=== PATIENT | male | born 1995 | race Caucasian/White ===

== ENCOUNTER 2016-10-21 20:56 | Emergency (ER) | payer BC ==
[~2016-10-21] VITALS: Ht 172.7 cm; Wt 83.7 kg
[2016-10-21 21:06] VITALS: TEMP 37; Ht 172.7 cm; Wt 83.7 kg
[2016-10-21] MEDS ORDERED: PROPARACAINE HCL 0.5% OP SOLN 15 ML BTL OP STA (21:38)
--- NOTE | 2016-10-21 22:29 | EMERGENCY ROOM VISIT NOTE ---
ED Visit Note First contact with patient: 21:10 CHIEF COMPLAINT: Eye pain HISTORY OF PRESENT ILLNESS: This 21-year-old male patient presents to the emergency department ambulatory complaining of pain in the right eye which began earlier today. The patient states that he was working at home shoveling dirt when he felt something go into the eyes. There has been a constant moderate pain and irritation, redness and tearing in the eye. There is a mild blurring of vision at times and light bothers the eye. The vision has not been decreased over all. The patient does not wear contacts. The patient rates the pain as stinging and 10/10. The patient has not had previous injuries to this eye. Tetanus shot is up to date. REVIEW OF SYSTEMS: A 6 system review of systems was completed with positives and pertinent negatives listed in the HPI. ALLERGIES: No known drug allergies MEDICATIONS: No chronic medications PMH: No significant past medical history. SOCIAL HISTORY: The patient lives locally with family. PHYSICAL EXAM: Vital Signs: Reviewed Nurse's notes, vital signs stable. Visual acuity 20/40 right eye, 20/15 left eye. GENERAL: This is a 21-year-old male, in no acute distress, but who is uncomfortable from the eye problem. Well- developed well-nourished. EYES: The pupils are equal round and reactive to light and accommodation. EOMs are full and without tenderness. There is discharge of clear tears from the right eye which is injected. There is no foreign body visible under the eyelid even after lid eversion. Funduscopic exam reveals no hemorrhages, papilledema, or other abnormalities. No foreign body was seen embedded in the cornea under slit lamp exam. The cornea was clear and no hyphema was seen. Fluorescein uptake was observed with ultraviolet light significant for a corneal abrasion at approximately 6:00. EMERGENCY DEPARTMENT COURSE: I examined the patient. Alcaine 2 drops were placed in the patient's right eye. A slit lamp exam was performed as above. Ciloxan two drops was placed in the patient's right eye. The patient was discharged home in good condition. DIAGNOSIS: Corneal abrasion of the right eye Current/Historical Medications Unable to Obtain Active Prescriptions or Reported Meds Allergies Coded Allergies: No Known Allergies (Unverified , 10/21/16) Vital Signs Date Time Temp Pulse Resp B/P Pulse Ox O2 Delivery O2 Flow Rate FiO2 10/21/16 22:30 71 18 130/72 95 Room Air 10/21/16 21:06 37.0 76 16 119/84 96 Room Air Medications Administered Medications (Trade) Dose Ordered Sig/Pancho Route Start Time Stop Time Status Last Admin Dose Admin Ciprofloxacin HCl (Ciprofloxacin 0.3% Op Soln) 2 drops Q4H ONCE OP 10/21/16 22:30 10/21/16 22:31 DC 10/21/16 22:29 2 DROPS Departure Information Dispostion Home / Self-Care Condition GOOD Prescriptions Unable to Obtain Active Prescriptions or Reported Meds Referrals Rayo Crowley M.D. (PCP) Patient Instructions My [facility] Additional Instructions You have been treated in the Emergency Department today for your Corneal Abrasion. You have been prescribed Ciloxan eye drops. This is an antibiotic which will help to prevent an infection from developing in your affected eye. You should use 2 drops in the affected eye every 2 hours while awake for the first 2 days, then every 4 hours for the remaining 5 days. This is a total of a 7-day course for these antibiotic eye drops. For pain control, you can use the following [id number] medicines (if >12 yo): - Regular strength (325mg/tab) Tylenol (acetaminophen) 2 tabs every 4-6 hours as needed. Do not exceed 12 tablets in a 24 hour period. Avoid taking more than 4 grams (4000 mg) of Tylenol per day. This includes any other sources of acetaminophen you may take on a regular basis. - Regular strength (200 mg/tab) Advil (ibuprofen) 1-2 tabs every 4-6 hours as needed. Do not exceed a dose of 3200 mg per day. You should relax in a quiet, dark place for the rest of the day. You should wear sunglasses while outside for the next few days until your eyes are not as sensitive to the light. You should schedule a follow-up appointment in 2-3 days with your Primary Care Provider or established Eye Doctor ([employer]) for further evaluation and treatment of your Corneal Abrasion. Return to the Emergency Department if your current symptoms worsen despite treatment course outlined above, or if you develop any of the following symptoms : intractable pain, visual disturbances, loss of vision, increased redness, swelling, drainage, or if you develop a fever.
[2016-10-21 22:30] VITALS: BP 130/72; PULSE 71; O2SAT 95
[2016-10-21] MEDS ORDERED: CIPROFLOXACIN HCL 0.3% OP SOLN 2.5 ML BTL OP ONE (22:30)
== END 2016-10-21 22:33 | disposition home or self-care (01) ==
LOC: C.EDB 20:56 → C.EDD 22:33
DX: S05.01XA Injury of conjunctiva and corneal abrasion without foreign body, right eye, initial encounter (principal); W22.8XXA Striking against or struck by other objects, initial encounter; Y93.H1 Activity, digging, shoveling and raking; Y92.009 Unspecified place in unspecified non-institutional (private) residence as the place of occurrence of the external cause

== ENCOUNTER 2017-09-15 05:38 | Emergency (ER) | payer BC, OTHER ==
[~2017-09-15] VITALS: Ht 170.2 cm; Wt 70.9 kg
[2017-09-15 05:42] VITALS: BP 109/61; PULSE 102; TEMP 38.2; O2SAT 95; Ht 170.2 cm; Wt 70.9 kg
[2017-09-15] MEDS ORDERED: KETOROLAC TROMETHAMINE 60 MG/2 ML VIAL IM STA (05:56)
[2017-09-15] MEDS ORDERED: AMOX875T PO (05:58)
[2017-09-15] MEDS ORDERED: CEFTRIAXONE SOD 350MG/ML 1 GM VIAL IM ONE (06:00)
[2017-09-15] MEDS ORDERED: DEXAMETHASONE **PF** INJ 10 MG/ML VIAL IM ONE (06:00)
--- NOTE | 2017-09-15 07:06 | EMERGENCY ROOM VISIT NOTE ---
History First contact with patient: 05:45 Chief Complaint: SORETHROAT Stated Complaint: SORE THROAT,HEADACHE,SWOLLEN TONSILS History of Present Illness The patient is a 22 year old male who presents to the Emergency Room with complaints of sore throat and fever symptoms worsening over the past one to 2 days. The patient does not have known exposure to disease, but is with past history of peritonsillar abscess that required admission and OR drainage. The patient is concerned for the same today as he is having pain with swallowing. He does not have cough, chest pain, chest tightness, or shortness of breath. He is able to handle his own secretions. No facial or ear pain. He rates his discomfort a 7/10 and last took Advil about 12 hours ago. Review of Systems More than 10 systems were reviewed and otherwise negative with the exception of history of present illness. Past Medical/Surgical History History of peritonsillar abscess Family History No pertinent family history Social History Smoking Status: Never Smoker Drug Use: none Marital Status: single Housing Status: lives with family Occupation Status: student Current/Historical Medications Scheduled Amoxicillin & Pot Clavulanate (Augmentin 875-125 mg), 1 TAB PO BID Physical Exam Vital Signs Date Time Temp Pulse Resp B/P (MAP) Pulse Ox O2 Delivery O2 Flow Rate FiO2 09/15/17 05:42 95 Room Air 09/15/17 05:42 38.2 102 20 109/61 95 Room Air Physical Exam VITALS: Vitals are noted on the nurse's note and reviewed by myself. Vital signs stable. GENERAL: Well-developed, well-nourished, white male, who is in no acute distress and resting comfortably. Patient is cooperative with the examination. EARS: External ear normal. External auditory canals clear, tympanic membranes pearly nice without erythema or effusion bilaterally. EYES: Pupils equal round and reactive to light and accommodation. Conjunctivae without injection, sclerae without icterus. Extraocular movements intact. NOSE: Patent, turbinates without inflammation or discharge. MOUTH: Mucous membranes moist. Tonsils are 3+ enlarged and exudative. Uvula is midline. No soft palate swelling. NECK: Supple without nuchal rigidity. Shotty anterior chain lymphadenopathy noted HEART: Regular rate and rhythm without murmurs gallops or rubs. LUNGS: Clear to auscultation bilaterally without wheezes, rales or rhonchi. No retractions or accessory muscle use. Medical Decision & Procedures Medications Administered Medications (Trade) Dose Ordered Sig/Pancho Route Start Time Stop Time Status Last Admin Dose Admin Ceftriaxone Sodium (Rocephin Im) 1,000 mg NOW ONCE IM 09/15/17 06:00 09/15/17 06:01 DC 09/15/17 06:11 1,000 MG Dexamethasone Sodium Phosphate (Dexamethasone Inj Pf) 10 mg NOW ONCE IM 09/15/17 06:00 09/15/17 06:01 DC 09/15/17 06:11 10 MG Ketorolac Tromethamine (Toradol Inj) 60 mg NOW STAT IM 09/15/17 05:56 09/15/17 05:58 DC 09/15/17 06:11 60 MG ED Course Physical exam and history were performed. Nursing notes, EMR, and Medication List were personally reviewed. Patient appears to have throat pain for the past one to 2 days. On exam he has markedly enlarged tonsils with exudates. Taking into consideration the patient' s past history of peritonsillar abscess I did elect to give him a dose of IM Rocephin, IM Decadron, and IM Toradol. The patient will be continued on Augmentin. He will need close follow-up with his primary care physician in the next 1-2 days for recheck. He was certainly invited back to the ER with any new , worsening, or concerning symptoms. He was given further instructions as below. The chart was completed utilizing [employer] Speech Voice Recognition Software. Grammatical errors, random word insertions, pronoun errors, and incomplete sentences are an occasional consequence of this system due to software limitations, ambient noise, and hardware issues. Any formal questions or concerns about the content, text, or information contained within the body of this dictation should be directly addressed to the provider for clarification. . Medical Decision Differential diagnosis: Etiologies such as viral syndrome, tonsillitis, streptococcal pharyngitis, mononucleosis, peritonsillar abscess, retropharyngeal abscess, otitis, pneumonia , influenza, as well as others were entertained. Impression Primary Impression: Acute tonsillitis Departure Information Dispostion Home / Self-Care Condition GOOD Prescriptions Amoxicillin & Pot Clavulanate (Augmentin 875-125 mg) 1 Tab Tab 1 TAB PO BID for 10 Days, #20 TAB Prov: Giles Hathaway PA-C 09/15/17 Forms HOME CARE DOCUMENTATION FORM, IMPORTANT VISIT INFORMATION Patient Instructions My [facility] Additional Instructions You were seen and evaluated today on an emergency basis only. This is not a substitute for, or an effort to provide, complete comprehensive medical care. It is not possible to recognize and treat all injuries or illnesses in a single emergency department visit. For this reason it is recommended that you followup with your primary care physician in 36-48 hours for recheck. For baseline pain relief you may alternate ibuprofen and acetaminophen every 4 hours for pain control. Take 600 mg ibuprofen (Advil) and then 4 hours later take 1000 mg acetaminophen (Tylenol). Do not take more than 3000 mg acetaminophen in a single day. Amoxicillin Clavulanate (Augmentin) 875mg: Take one pill twice daily for 10 days for your infection. All antibiotics can cause diarrhea. If this occurs and you feel worse or it does not resolve in 1-2 days follow up with your doctor or return to the Emergency Department as this could be signs of serious underlying problems. Any medication can cause an allergic reaction, stop the pills immediately and return to the ER for rash, hives, breathing difficulties, or swelling. You are welcome to return to the emergency department anytime with new, worsening, or concerning symptoms.
== END 2017-09-15 06:20 | disposition home or self-care (01) ==
LOC: C.EDB 05:39 → C.EDA 06:20
DX: J03.90 Acute tonsillitis, unspecified (principal)